=== PATIENT | female | born 1940 | race Caucasian/White ===

== ENCOUNTER → 2019-12-20 | Emergency (ER) | payer OTHER, BC ==
--- NOTE | 2019-12-20 16:26 | TELE ---
HPI Do you have fever,cough or shortness of breath?: No - General Reason For Visit: RASH History Source: Patient Exam Limitations: No Limitations - History of Present Illness 12/20/19 16:21 79-year-old history of hypertension, Lalo's, Parkinson's complaining of painful itchy rash to right upper extremity and right lateral chest x7 days. Reports rash 1 month ago which was not painful and itchy, followed up with tunnel heading inspector who prescribed triamcinolone cream which slightly helped symptoms. Denies fever, chills, cough, shortness of breath, chest pain, abdominal pain, vomiting, diarrhea, headache, changes in vision, sick contacts or any other complaints. Reports her primary care physician and tunnel heading inspector are on vacation. ROS: rash PE: GENERAL: well-appearing, speaking full sentences HEAD: NCAT NECK: supple SKIN: Vesicular, erythematous rash along right lateral chest wall and right upper extremity Past History - Medical History Home Medications: Ambulatory Orders Valacyclovir HCl [Valacyclovir] 1,000 mg PO TID 7 Days #21 tablet 12/20/19 - Medical Decision Making 12/20/19 16:26 79-year-old history of hypertension, Lalo's, Parkinson's complaining of painful itchy rash to right upper extremity and right lateral chest x7 days. Reports rash 1 month ago which was not painful and itchy, followed up with tunnel heading inspector who prescribed triamcinolone cream which slightly helped symptoms. Denies fever, chills, cough, shortness of breath, chest pain, abdominal pain, vomiting, diarrhea, headache, changes in vision, sick contacts or any other complaints. Reports her primary care physician and tunnel heading inspector are on vacation. We will treat this as herpes zoster Prescription for valacyclovir sent to pharmacy Advised patient to schedule an appointment with PMD and dermatology Discharge Diagnosis at time of Disposition: Rash - Referrals Follow-up Referral(s): Armen Robles MD [Primary Care Provider] - - Patient Instructions Additional Discharge Instructions: Take valacyclovir 1000 mg 3 times a day for 7 days Follow-up with your doctor within 2 to 3 days Present to ED if fever, nausea, vomiting, chest pain, shortness of breath or worsening symptoms - Discharge Disposition: HOME Condition at time of Disposition: Stable
== END | disposition home or self-care (01) ==
LOC: JVIRT 12:41
DX: R21 Rash and other nonspecific skin eruption (principal)
CPT/HCPCS: Q3014-GT

== ENCOUNTER 2019-12-22 19:45 | Emergency (ER) | payer OTHER, BC ==
[2019-12-22 20:52] VITALS: BP 159/70; PULSE 72; TEMP 98.6; BMI 31.5
[2019-12-22] MEDS ORDERED: KETOROLAC TROMETHAMINE 30 MG/1 ML VIAL IM ONE (22:55)
[2019-12-22] MEDS ORDERED: KETOROLAC TROMETHAMINE 30 MG/1 ML VIAL ONE (23:11)
--- NOTE | 2019-12-23 00:05 | PDOC ---
Documentation entered by Alan Benavides SCRIBE, acting as scribe for Lexi Montgomery MD. Lexi Montgomery MD: This documentation has been prepared by the Kennedy angel Angel, SCRIBE, under my direction and personally reviewed by me in its entirety. I confirm that the documentation accurately reflects all work, treatment, procedures, and medical decision making performed by me. History of Present Illness - General Chief Complaint: Pain Stated Complaint: RIGHT THIGH PAIN Time Seen by Provider: 12/22/19 20:29 History Source: Patient Exam Limitations: No Limitations - History of Present Illness Initial Comments: 12/22/19 21:59 The patient is a 79 year old female with a significant past medical history of Hypertension, Lalo's, Parkinson's and Osteopenia who presents to the ED with a few days of right leg weakness and pain. The patient states a few days ago she was getting up from a sitting position and felt/heard something pop in her right thigh. Ever since that pop the patient has been experiencing pain in her right thigh and originally was not able to put weight on it. The patient states she felt more comfortable walking into the ED compared to how she felt at home but has trouble lifting her right leg because she feels something pulling in her thigh. 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 The patient has not taken any medications for her pain since the incident. The patient has recently begun taking prescribed medications for her Shingles which began approximately 2 weeks ago. Past History - Medical History Allergies/Adverse Reactions: Allergies Allergy/AdvReac Type Severity Reaction Status Date / Time No Known Allergies Allergy Verified 12/22/19 20:44 Home Medications: Ambulatory Orders Valacyclovir HCl [Valacyclovir] 1,000 mg PO TID 7 Days #21 tablet 12/20/19 Aspirin [Aspirin EC] 81 mg PO DAILY 12/22/19 Calcium Carbonate/Vitamin D3 [Calcium 600 + Vitamin D Sftgl] 2 each PO DAILY 12/22/19 Carbidopa/Levodopa *Cr* 25/100 [Sinemet *Cr* 25/100 -] 1 combo PO BID 12/22/19 Carbidopa/Levodopa [Carbidopa-Levodopa 25-250 Tab] 1 each PO BID 07/27/20 Citalopram Hydrobromide [Citalopram HBr] 20 mg PO HS 12/22/19 Diclofenac Sodium 75 mg PO BID PRN #20 tablet. 12/22/19 Glucosamine/D3/Boswellia Alea [Osteo Bi-Flex Tablet] 1 each PO DAILY 12/22/19 Levothyroxine [Synthroid -] 75 mcg PO DAILY 12/22/19 Magnesium Chloride [Slow-Mag -] 64 mg PO DAILY 12/22/19 Manson-3/Dha/Epa/Fish Oil [Fish Oil Manson-3 EC 1,200 mg] 1 each PO DAILY 12/22/19 Triamterene/Hydrochlorothiazid [Triamterene-Hctz 75-50 mg Tab] 1 each PO DAILY 12/22/19 Ubidecarenone [Co Q-10] 200 mg PO DAILY 12/22/19 Vitamin E 400 unit PO DAILY 12/22/19 COPD: No HTN: Yes Thyroid Disease: Yes Other medical history: PARKINSON'S DISEASE, OSTEOPENIA, LEFT WRIST FX - Psycho-Social/Smoking History Smoking History: Former smoker Have you smoked in the past 12 months: No If you are a former smoker, when did you quit?: 1994 Information on smoking cessation initiated: No - Substance Abuse Hx (Audit-C & DAST Scrn) How often the patient has a drink containing alcohol: Never Score: In Men: 4 or > Positive; In Women: 3 or > Positive: 0 Screen Result (Pos requires Nsg. Audit-10AR): Negative In the last yr the pt used illegal drug/Rx for NonMed reason: No Score: Yes response is considered Positive: 0 Screen Result (Positive result requires Nsg. DAST-10): Negative Review of Systems - Review of Systems Able to Perform ROS?: Yes Comments:: 12/22/19 22:03 GENERAL/CONSTITUTIONAL: No fever or chills. No weakness. HEAD, EYES, EARS, NOSE AND THROAT: No change in vision. No ear pain or discharge. No sore throat. CARDIOVASCULAR: No chest pain or shortness of breath. RESPIRATORY: No cough, wheezing, or hemoptysis. GASTROINTESTINAL: No nausea, vomiting, diarrhea or constipation. GENITOURINARY: No dysuria, frequency, or change in urination. MUSCULOSKELETAL: +LRE pain. No neck or back pain. SKIN: +Rashes on the upper extremities and abdomen. NEUROLOGIC: No headache, vertigo, loss of consciousness, or change in strength/sensation. ENDOCRINE: No increased thirst. No abnormal weight change. HEMATOLOGIC/LYMPHATIC: No anemia, easy bleeding, or history of blood clots. ALLERGIC/IMMUNOLOGIC: No hives or skin allergy. *Physical Exam - Vital Signs Last Vital Signs Temp Pulse Resp BP Pulse Ox 98.6 F 72 18 159/70 96 12/22/19 20:11 12/22/19 20:11 12/22/19 20:11 12/22/19 20:11 12/22/19 20:11 - Physical Exam 12/22/19 22:20 GENERAL: Awake, alert, and fully oriented, in no acute distress HEAD: No signs of trauma EYES: PERRLA, EOMI, sclera anicteric, conjunctiva clear ENT: Auricles normal inspection, hearing grossly normal, nares patent, oropharynx clear without exudates. Moist mucosa NECK: Normal ROM, supple, no lymphadenopathy, JVD, or masses LUNGS: Breath sounds equal, clear to auscultation bilaterally. No wheezes, and no crackles HEART: Regular rate and rhythm, normal S1 and S2, no murmurs, rubs or gallops ABDOMEN: Soft, nontender, normoactive bowel sounds. No guarding, no rebound. No masses. No pelvic bone point tenderness. EXTREMITIES: +RLE moderate pain with extension of thigh with pain localization to the greater trochanter. No anterior right hip tenderness, no anterior or posterior thigh tenderness or masses. NEUROLOGICAL: Cranial nerves II through XII grossly intact. Normal speech, normal gait SKIN: +Erythematous maculopapular linear distribution on the right flank and forearms. Warm, Dry, normal turgor. ED Progress Note - Progress Note Progress Note: As noted above, this 79-year-old woman presents with pain, especially with weightbearing in movement of her proximal right leg for the last few hours. She recalls hearing a pop when she moved her right leg laterally (abducting at the hip). She denies any antecedent trauma or overuse. 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 Since the onset of her pain a few hours ago, patient is using a walker for ambulation. Exam is noted. No point tenderness of the anterior hip joint is present on exam but right hip and pelvis plain film x-rays were performed to evaluate for atraumatic causes for pain such as avascular necrosis. Radiology studies interpreted by Dr. Diggs of the radiology staff: No evidence of fracture, dislocation, avascular necrosis or other acute pathology Results discussed with the patient and her daughter. Likely soft tissue injury such as muscle or tendon strain of hip abductor, hip flexor or iliotibial tract is the cause of her pain and the "pop" that she heard. Patient currently does not have an orthopedist. She states that she wants to be followed by Dr. Barajas and referral information for him will be provided for her. Toradol 30 mg IM ordered for analgesia. Patient cannot take NSAIDs without side effects and prescription for diclofenac 75 mg twice a day as needed for pain will be sent to her pharmacy. Meanwhile, if she has worsening of pain or develops any fever, swelling in the area, she should return to the emergency room Discharge - Discharge Information Problems reviewed: Yes Clinical Impression/Diagnosis: Strain of right hip Qualifiers: Encounter type: initial encounter Qualified Code(s): S76.011A - Strain of muscle, fascia and tendon of right hip, initial encounter Condition: Stable Disposition: HOME - Additional Discharge Information Prescriptions: Diclofenac Sodium 75 mg PO BID PRN #20 tablet.dr BLACKMON Reason: Pain - Follow up/Referral Referrals: Anil Barajas MD [Staff Physician] - - Patient Discharge Instructions Patient Printed Discharge Instructions: DI for Hip Pain Additional Instructions: Diclofenac 75 mg twice a day as needed for pain Take diclofenac with food with each dose; can alternate with acetaminophen Continue all other medications as prescribed Call Dr. Barajas's office in a.m. and arrange for follow-up Return to ER if you have worsening pain or if you develop fevers/chills/weakness in the leg - Post Discharge Activity
== END 2019-12-22 23:48 | disposition home or self-care (01) ==
LOC: FER 19:45
PROC: 3E0233Z Introduction of Anti-inflammatory into Muscle, Percutaneous Approach (ICD-10-PCS; principal; 2019-12-22)
DX: S72.011A Unspecified intracapsular fracture of right femur, initial encounter for closed fracture (principal)
CPT/HCPCS: 73523-TC-FY; 99284-25

== ENCOUNTER 2021-04-26 12:27 | Emergency (ER) | payer OTHER, BC ==
[2021-04-26 12:57] VITALS: BMI 32.8
[2021-04-26] MEDS ORDERED: BAMLANIVIMAB 700 MG, ETESEVIMAB 1,400 MG in SODIUM CHLORIDE 100 ML IVPB ONE (13:10)
[2021-04-26] MEDS ORDERED: CASIRIVIMAB/IMDEVIMAB 10 ML in SODIUM CHLORIDE 100 ML IVPB ONE (13:42)
[2021-04-26 14:39] LABS: HEMATOCRIT 34.9 % (32.4-45.2); HEMOGLOBIN 12.4 GM/dL (10.7-15.3); MCH 29.2 pg (25.7-33.7); MCHC 35.7 g/dl (32.0-36.0); MEAN CELL VOLUME 81.9 fl (80-96); MEAN PLT VOLUME 8.2 fl (7.5-11.1); PLATELET COUNT 170 10^3/uL (134-434); RBC 4.25 M/mm3 (3.60-5.2); RDW 14.7 % (11.6-15.6)
[2021-04-26 15:43] LABS: BLOOD UREA NITROGEN 29.4 mg/dL (7-18); CALCIUM 8.8 mg/dL (8.5-10.1)
[2021-04-26 15:46] LABS: CREATININE 1.4 mg/dL (0.55-1.3)
[2021-04-26] MEDS ORDERED: ACETAMINOPHEN 1000 MG/100 ML VIAL IVPB ONE (15:50)
[2021-04-26] MEDS ORDERED: SODIUM CHLORIDE 1,000 ML IV STA (15:52)
[2021-04-26 20:09] VITALS: BP 147/64; PULSE 88; TEMP 98.6
== END 2021-04-26 18:54 | disposition home or self-care (01) ==
LOC: JCOVINFU 12:27
PROC: 3E0333Z Introduction of Anti-inflammatory into Peripheral Vein, Percutaneous Approach (ICD-10-PCS; principal; 2021-04-26)
PROC: 3E03329 Introduction of Other Anti-infective into Peripheral Vein, Percutaneous Approach (ICD-10-PCS; 2021-04-26)
PROC: 3E0337Z Introduction of Electrolytic and Water Balance Substance into Peripheral Vein, Percutaneous Approach (ICD-10-PCS; 2021-04-26)
DX: U07.1 COVID-19 (principal)
CPT/HCPCS: 36415; 80048; 85027; 99284-25; J0131; Q0240

== ENCOUNTER 2023-08-25 17:46 | Emergency (ER) | payer OTHER, BC ==
[2023-08-25] MEDS ORDERED: predniSONE 20 MG TABLET (UD) ONE (18:50)
[2023-08-25] MEDS ORDERED: ALBUTEROL SO4 HFA INHALER IH ONE (18:50)
[2023-08-25] MEDS: ALBUTEROL SO4 HFA INHALER IH ONE (18:54)
[2023-08-25] MEDS: predniSONE 20 MG TABLET (UD) PO ONE (18:54)
[2023-08-25 18:55] LABS: HEMATOCRIT 29.1 % (32.4-45.2); HEMOGLOBIN 10.2 G/dL (10.7-15.3); MCH 29.1 pg (25.7-33.7); MCHC 34.9 g/dl (32.0-36.0); MEAN CELL VOLUME 83.4 fl (80-96); MEAN PLT VOLUME 7.6 fl (7.5-11.1); PLATELET COUNT 210.8 10^3/uL (134-434); RBC 3.49 10^6/uL (3.60-5.2); RDW 14.6 % (11.6-15.6); WHITE BLOOD COUNT 11.8 10^3/uL (4.0-10.8)
[2023-08-25 19:05] VITALS: BP 126/57; PULSE 92; RESP 20; TEMP 97.9; BMI 34.0
[2023-08-25 19:12] LABS: BILIRUBIN,TOTAL 0.3 mg/dl (0.2-1); CREATININE 1.5 mg/dl (0.6-1.3); POTASSIUM 4.5 mmol/L (3.5-5.1); TOT PROT 7.5 g/dl (6.4-8.2)
== END 2023-08-25 20:12 | disposition home or self-care (01) ==
LOC: FER 17:46
DX: R05.9 Cough, unspecified (principal); R06.02 Shortness of breath; J18.9 Pneumonia, unspecified organism; Z20.822 Contact with and (suspected) exposure to COVID-19
CPT/HCPCS: 0241U-QW; 36415; 71046-TC-FY; 80053; 83880; 85025; 99284-25